=== PATIENT | female | born 1965 | race Caucasian/White ===

== ENCOUNTER 2017-02-24 22:11 | Emergency (ER) | payer OTHER ==
[2017-02-24 22:18] VITALS: BP 145/93
--- NOTE | 2017-02-24 22:28 | ED Physician Documentation ---
PD HPI LOWER EXT INJURY - Stated complaint Stated Complaint: LT FOOT INJURY - Chief complaint Chief Complaint: Ext Problem - History obtained from History obtained from: Patient - History of Present Illness PD HPI LOW EXT INJURY LOCATION: Left, Foot Type of injury: Twist (inversion as stepped on edge of curbing/ramp.) Where injury occurred: Other ([place]) Timing - onset: Today Timing - details: Abrupt onset, Still present Improved by: Rest Worsened by: Moving, Palpating, Other (stepping/weight bearing) Contributing factors: No: Prior ortho surgery Similar symptoms before: Has not had sx before Recently seen: Not recently seen Review of Systems Skin: denies: Abrasion (s), Laceration (s) Neurologic: denies: Focal weakness, Numbness PD PAST MEDICAL HISTORY - Past Medical History Past Medical History: No Musculoskeletal: None - Past Surgical History General: Cholecystectomy, Appendectomy /[employer]ER: Hysterectomy Cardiovascular: Other - Present Medications Home Medications: Ambulatory Orders Medication Instructions Recorded Confirmed No Known Home Medications [No 02/24/17 02/24/17 Known Home Medications] - Allergies Allergies/Adverse Reactions: Allergies Allergy/AdvReac Type Severity Reaction Status Date / Time No Known Drug Allergies Allergy Verified 02/24/17 22:18 - Social History Does the pt smoke?: No Smoking Status: Never smoker Does the pt drink ETOH?: Yes - Immunizations Immunizations are current?: No Immunizations: TDAP >10years/unknown PD ED PE NORMAL - Vitals Vital signs reviewed: Yes - General General: Alert and oriented X 3, No acute distress, Well developed/nourished - Derm Derm: Normal color, Warm and dry - Extremities Extremities: Other (lateral dye tub tender over 5th MT area. Malleoli are not tender. No fdeformity; some swelling dorsum foot. Normal sensation, color, cap refill in toes. ) Results - Vitals Vitals: Oxygen O2 Source Room air - Rads (name of study) foot Radiology: Prelim report reviewed, EMP read contemporaneously (no fractures) PD MEDICAL DECISION MAKING - ED course Complexity details: reviewed results, considered differential, d/w patient Departure - Departure Disposition: 01 Home, Self Care Clinical Impression: Foot sprain Qualifiers: Encounter type: initial encounter Laterality: left Qualified Code(s): S93.602A - Unspecified sprain of left foot, initial encounter Condition: Stable Record reviewed to determine appropriate education?: Yes Instructions: ED Sprain Foot Follow-Up: Chidi Lopez MD [Primary Care Provider] - Comments: Firm shoe to support the foot. Crutches as needed for non-weightbearing for comfort. Progress weight and use as able. Ibuprofen or Naproxen 2-3 times daily for 5 days. Add Tylenol as needed for pain. Follow up PMD if not improved over the next week or so, or if not fully better over couple of weeks. Discharge Date/Time: 02/24/17 23:20
--- NOTE | 2017-02-24 22:56 | XRAY Preliminary Report ---
Exam: XR Foot 3 View LT IMPRESSION: 1. No fracture. 2. Normal alignment. 3. Mild lateral and dorsal foot swelling. [facility] SITE ID: [id number]
[2017-02-24] MEDS ORDERED: traMADol 50 MG TABLET PO STA (22:59)
[2017-02-24] MEDS ORDERED: IBUPROFEN 600 MG TABLET PO STA (22:59)
[2017-02-24] MEDS ORDERED: traMADol 50 MG TABLET PO ONE (23:02)
[2017-02-24] MEDS ORDERED: IBUPROFEN 600 MG TABLET PO ONE (23:02)
--- NOTE | 2017-02-24 23:34 | XRAY Report ---
EXAM: LEFT FOOT RADIOGRAPHY EXAM DATE: 02/24/2017 10:39 PM. CLINICAL HISTORY: Pain post fall. COMPARISON: None. TECHNIQUE: 3 views. FINDINGS: Bones: Normal. No fractures or bone lesions. Joints: Normal. No subluxations. Soft Tissues: Mild lateral and dorsal left foot swelling. IMPRESSION: 1. No fracture. 2. Normal alignment. 3. Mild lateral and dorsal foot swelling. [facility] Referring Provider Line: [phone] SITE ID: [id number]
== END 2017-02-24 23:20 | disposition home or self-care (01) ==
LOC: ED 22:11
DX: S93.602A Unspecified sprain of left foot, initial encounter (principal); X50.1XXA Overexertion from prolonged static or awkward postures, initial encounter; Y93.89 Activity, other specified; Y92.480 Sidewalk as the place of occurrence of the external cause
CPT/HCPCS: 73630; 99282; 99283; A9270